=== PATIENT | male | born 1985 | race Caucasian/White ===

== ENCOUNTER 2024-04-20 17:49 | Emergency (ER) | payer BC, SELFPAY ==
[2024-04-20] VITALS (11 sets, daily range): BP systolic 131–147; BP diastolic 90–107; PULSE 86–106; RESP 18; TEMP 37; O2SAT 97–100; BMI 28.8
--- NOTE | 2024-04-20 17:59 | CRLHL7_ITS ---
For Patients: As a result of the Century Cures Act, medical imaging exams and procedure reports are released immediately into your electronic medical record. You may view this report before your referring provider. If you have questions, please contact your health care provider. Indication: Trauma. Technique: Right ankle, 3 views. Comparison: None. Findings/Impression: Bones: Acute minimally displaced trimalleolar fractures. Additional age-indeterminate posterior talar process fracture. Joint spaces: Widening of the medial and lateral clear space concerning for talocrural joint disruption. Associated joint effusion. Soft tissues: Associated soft tissue swelling. Dictated by Colby Cooley MD @ 04/20/2024 6:21:22 PM (Electronically Signed)
[2024-04-20] MEDS: 0.9 % SODIUM CHLORIDE 500 ML 500 ML IV (18:55)
[2024-04-20] MEDS: PROPOFOL 10 MG/ML INJ 200 MG IVP (19:00)
--- NOTE | 2024-04-20 19:12 | ED.GENADULT ---
HPI - General Adult General Chief complaint: Extremity Pain/Injury, Lower Stated complaint: broke ankle right Time Seen by Provider: 04/20/24 17:56 Related Data Home Medications ?Medication ?Instructions ?Recorded ?Confirmed No Known Home Medications 04/20/24 04/20/24 Allergies Allergy/AdvReac Type Severity Reaction Status Date / Time No Known Drug Allergies Allergy Verified 04/20/24 17:57 PFSH [facility] Social History Smoking Status: Current every day smoker What tobacco products do you use: cigarettes Smoking packs per day: 1 Smoking cigarettes per day: 20.0 Do you use any of these nicotine containing products: None Second hand tobacco smoke exposure: No How often do you have a drink containing alcohol: 4 or more times a week How many standard drinks containing alcohol do you have on a typical day: 3 or 4 How often do you have six or more drinks on one occasion: Less than monthly AUDIT-C Alcohol total score: 6 Non-prescribed substance use: denies use service: No Exam Const: Vital Signs, click to edit/add: Vital Signs - 24 hr 04/20/24 17:58 Temperature 98.6 F Pulse Rate [Pulse Oximeter] 106 H Respiratory Rate 18 Blood Pressure [Le ft Forearm] 136/90 H Pulse Oximetry 98 Oxygen Delivery Me thod Room Air Course Course ED Course: I was asked to provide procedural sedation for this patient. Patient denies any history of reacting to anesthesia, no known drug allergies. History of asthma that has not required treatment, he does smoke a pack of cigarettes per day. Risks and benefits of the procedure were discussed including the potential of her intubation, patient wished to proceed. Propofol was used, 130 mg used to achieve proper sedation. Patient woke up without any difficulty. Vital Signs Vital signs: Initial Vital Signs Temperature 98.6 F 04/20/24 17:58 Temperature Source Temporal Artery Scan 04/20/24 17:58 Pulse Rate 106 H 04/20/24 17:58 Pulse Rhythm Regular 04/20/24 17:58 Respiratory Rate 18 04/20/24 17:58 Blood Pressure 136/90 H 04/20/24 17:58 Blood Pressure Mean 105 04/20/24 17:58 Blood Pressure Position Supine 04/20/24 17:58 Pulse Oximetry 98 04/20/24 17:58 Oxygen Delivery Method Room Air 04/20/24 17:58 Vital Signs Temperature 98.6 F 04/20/24 17:58 Pulse Rate 106 H 04/20/24 17:58 Respiratory Rate 18 04/20/24 17:58 Blood Pressure 136/90 H 04/20/24 17:58 Pulse Oximetry 98 04/20/24 17:58 Oxygen Delivery Method Room Air 04/20/24 17:58 Temperature 98.6 F 04/20/24 17:58 Pulse Rate 102 H 04/20/24 19:48 Respiratory Rate 18 04/20/24 17:58 Blood Pressure 139/99 H 04/20/24 19:48 Pulse Oximetry 99 04/20/24 19:48 Oxygen Delivery Method Nasal Cannula 04/20/24 19:30 Oxygen Flow Rate 1 04/20/24 19:30 Medications Administered Medications: Discontinued Medications Generic Name Dose Route Start Last Admin Trade Name Freq PRN Reason Stop Dose Admin Sodium Chloride 500 mls @ 500 mls/hr 04/20/24 18:50 04/20/24 19:45 0.9 % Sodium Chloride 500 Ml IV 04/20/24 19:49 Infused .Q1H ONE Infusion Propofol 200 mg 04/20/24 18:50 04/20/24 19:00 Propofol 10 Mg/Ml Inj IVP 04/20/24 18:51 130 mg ONCE ONE Administration Discharge Plan Discharge Clinical Impression: Closed trimalleolar fracture of right ankle Instructions: Ankle Fracture (DC) Additional Instructions: This type of fracture require surgical repair. Please follow-up with orthopedics early next week. You should use crutches, no weight-bearing until that time. Please elevate your leg as much as possible to reduce swelling. Tylenol as needed 1000 mg 3 times daily. Oxycodone if needed for uncontrolled pain. Prescriptions: No Action No Known Home Medications Follow Up/Referrals: Provider,Not a Local [Primary Care Provider] - Stand Alone Forms: [employer] Info Instructions
--- NOTE | 2024-04-20 19:15 | ED_ITS ---
HPI - General Adult General Chief complaint: Extremity Pain/Injury, Lower Stated complaint: broke ankle right Time Seen by Provider: 04/20/24 17:56 Source: patient Mode of arrival: ambulatory Limitations: no limitations History of Present Illness HPI narrative: Patient is a 38-year-old man, generally healthy, was at a bar when he said his friend fell on him landing on his right ankle. He heard a crack and was not able to bear weight after that. A friend brought him into the ER. No other injuries or complaints. He has had a few drinks but feels very much able to make decisions for himself at this time. His friend agrees. Related Data Home Medications ?Medication ?Instructions ?Recorded ?Confirmed No Known Home Medications 04/20/24 04/20/24 Allergies Allergy/AdvReac Type Severity Reaction Status Date / Time No Known Drug Allergies Allergy Verified 04/20/24 17:57 [facility] Social History Smoking Status: Current every day smoker What tobacco products do you use: cigarettes Smoking packs per day: 1 Smoking cigarettes per day: 20.0 Do you use any of these nicotine containing products: None Second hand tobacco smoke exposure: No How often do you have a drink containing alcohol: 4 or more times a week How many standard drinks containing alcohol do you have on a typical day: 3 or 4 How often do you have six or more drinks on one occasion: Less than monthly AUDIT-C Alcohol total score: 6 Non-prescribed substance use: denies use service: No Exam Narrative: Exam Narrative: Vital signs reviewed In general, alert, well-appearing and man. He is chatty, cooperative. Extremities: Examination of the right lower extremity shows swelling and tenderness of the ankle. Distal CMS is intact. No proximal fibular tenderness. Extremities otherwise atraumatic. Neurologic: He is alert, conversant, speech fluent. Moves all extremities equally. Skin: Intact, no abrasions or lacerations. Minimal bruising at this time. Const: Vital Signs, click to edit/add: Vital Signs - 24 hr 04/20/24 17:58 Temperature 98.6 F Pulse Rate [Pulse Oximeter] 106 H Respiratory Rate 18 Blood Pressure [Le ft Forearm] 136/90 H Pulse Oximetry 98 Oxygen Delivery Me thod Room Air Documenting provider has reviewed patient's vital signs: yes Course Course ED Course: X-rays of the right ankle read as follows:Patient: CHAVEZ SHELTON Facility: [facility] RIS Site . Site : 1985 Study: XRay-Extremity Right 3 VIEWS-04/20/2024 6:12:04 PM Ordering Physician: Casey Li Final Report: Indication: Trauma. Technique: Right ankle, 3 views. Comparison: None. Findings/Impression: Bones: Acute minimally displaced trimalleolar fractures. Additional age- indeterminate posterior talar process fracture. Joint spaces: Widening of the medial and lateral clear space concerning for talocrural joint disruption. Associated joint effusion. Soft tissues: Associated soft tissue swelling. Discussed management with the patient. I think we can try to improve joint appearance as we splint and he would do best with sedation. He declined any pain medication as he does not like the way they make him feel. He did agree to proceeding with sedation however. Risks and benefits were reviewed with the patient and consent was signed. Discussed possible risks of over sedation, need for airway management, aspiration, as well as failure to reduce, damage to arteries and nerves. Procedure note: Patient was monitored on cardiac, end-tidal CT O2 and oximetry. He was given propofol, please see Dr. Preciado's note for details of sedation. He tolerated it well. Ankle was reduce anteriorly and then splinted with a short leg RJ. CMS remains intact. He awakened without difficulty. Repeat x-rays post splinting show somewhat improved alignment, acceptable for now. Will give him crutches, nonweightbearing. He would like to follow-up with [facility] where he has been seen previously so will provide his x-rays. I have reviewed with him that this is an operative fracture, he needs to be seen in clinic this week to discuss next steps. Elevate as much as able. I gave him oxycodone if needed for pain, otherwise Tylenol or ibuprofen. Vital Signs Vital signs: Initial Vital Signs Temperature 98.6 F 04/20/24 17:58 Temperature Source Temporal Artery Scan 04/20/24 17:58 Pulse Rate 106 H 04/20/24 17:58 Pulse Rhythm Regular 04/20/24 17:58 Respiratory Rate 18 04/20/24 17:58 Blood Pressure 136/90 H 04/20/24 17:58 Blood Pressure Mean 105 04/20/24 17:58 Blood Pressure Position Supine 04/20/24 17:58 Pulse Oximetry 98 04/20/24 17:58 Oxygen Delivery Method Room Air 04/20/24 17:58 Vital Signs Temperature 98.6 F 04/20/24 17:58 Pulse Rate 106 H 04/20/24 17:58 Respiratory Rate 18 04/20/24 17:58 Blood Pressure 136/90 H 04/20/24 17:58 Pulse Oximetry 98 04/20/24 17:58 Oxygen Delivery Method Room Air 04/20/24 17:58 Temperature 98.6 F 04/20/24 17:58 Pulse Rate 102 H 04/20/24 19:48 Respiratory Rate 18 04/20/24 17:58 Blood Pressure 139/99 H 04/20/24 19:48 Pulse Oximetry 99 04/20/24 19:48 Oxygen Delivery Method Nasal Cannula 04/20/24 19:30 Oxygen Flow Rate 1 04/20/24 19:30 Medications Administered Medications: Discontinued Medications Generic Name Dose Route Start Last Admin Trade Name Freq PRN Reason Stop Dose Admin Sodium Chloride 500 mls @ 500 mls/hr 04/20/24 18:50 04/20/24 19:45 0.9 % Sodium Chloride 500 Ml IV 04/20/24 19:49 Infused .Q1H ONE Infusion Propofol 200 mg 04/20/24 18:50 04/20/24 19:00 Propofol 10 Mg/Ml Inj IVP 04/20/24 18:51 130 mg ONCE ONE Administration Medical Decision Making Imaging Data Right ankle x-ray: Attestation: I have reviewed the pertinent imaging results. Radiologist's impression: [place] [address] Diagnostic Imaging Report Patient: Chavez Shelton MR#: [id number] : 1985 Acct:[id number] Loc: ED Service Date: 04/20/[address]: Ordering Physician: Jen Peña M.D. Date of Service: 04/20/24 Procedure(s): XR ankle RT 2V Accession Number(s): [id number] cc: Jen Peña M.D.; Provider,Not a Local~ For Patients: As a result of the Cures Act, medical imaging exams and procedure reports are released immediately into your electronic medical record. You may view this report before your referring provider. If you have questions, please contact your health care provider. Indication: Postreduction. Technique: Right ankle, 2 views. Comparison: April 20, 2024. Findings/Impression: Interval placement of overlying cast which obscures fine osseous detail. Redemonstration of trimalleolar fracture in improved alignment. Ankle mortise appears congruent on this two-view radiograph. Similar age-indeterminate posterior talar process fracture. Discharge Plan Discharge Clinical Impression: Closed trimalleolar fracture of right ankle Instructions: Ankle Fracture (DC) Additional Instructions: This type of fracture require surgical repair. Please follow-up with orthopedics early next week. You should use crutches, no weight-bearing until that time. Please elevate your leg as much as possible to reduce swelling. Tylenol as needed 1000 mg 3 times daily. Oxycodone if needed for uncontrolled pain. Prescriptions: No Action No Known Home Medications Follow Up/Referrals: Provider,Not a Local [Primary Care Provider] - Stand Alone Forms: [facility] Info Instructions
== END 2024-04-20 20:05 | disposition home or self-care (01) ==
PROVIDERS: Emergency Provider Emergency Medicine
DX: S82.851A Displaced trimalleolar fracture of right lower leg, initial encounter for closed fracture (principal); W19.XXXA Unspecified fall, initial encounter
CPT/HCPCS: 27818; 73600; 73610; 94761; 99156; 99284; 99285; J2704; J7030